=== PATIENT | female | born 1975 | race Caucasian/White ===

== ENCOUNTER 2023-02-04 14:19 | Emergency (ER) | payer MEDICAID, SELFPAY ==
[2023-02-04 14:20] VITALS: BP 102/71; PULSE 81; RESP 18; TEMP 36.2; O2SAT 95; BMI 40.0
[2023-02-04 14:28] VITALS: BP 102/71; PULSE 86; RESP 18; TEMP 36.2; O2SAT 96; O2SAT 97
--- NOTE | 2023-02-04 14:35 | RAD_ITS ---
STUDY: X-RAY - LEFT CALCANEUS REASON FOR EXAM: Female, 47 years old. Pain following a fall. History of recent surgery. TECHNIQUE: 3 view(s) of the calcaneus were obtained. COMPARISON: None. FINDINGS: Plantar spur. Findings suggestive of a hardware removal along the posterior aspect of the calcaneus. Soft tissue swelling and small amount of air within the soft tissues overlying the posterior aspect of the hindfoot most likely secondary to post surgery. Clinical correlation is recommended. RAD/Calcaneus min 2 Views IMPRESSION: Plantar spur. Soft tissue swelling with small amount of air as described most likely postsurgical in nature. Electronically Signed: Ronnell Mcclain MD at 15:19 EDT ,
--- NOTE | 2023-02-04 14:35 | RAD_ITS ---
STUDY: X-RAY - LEFT FOOT CLINICAL: Female, 47 years old. Pain following injury. TECHNIQUE: 3 view(s) of the foot. COMPARISON: None. FINDINGS: There is a plantar calcaneal spur. Findings suggestive of hardware removal along the posterior aspect of the calcaneus. Normal visualized subtalar, talonavicular, calcaneocuboid, tarsal and tarsometatarsal articulations. Normal metatarsi. Normal metatarsophalangeal joint of the great toe. Normal tibial and fibular sesamoid bones. Normal interphalangeal joint of the great toe. Normal phalanges of the great toe. Normal second through fifth metatarsophalangeal joints. Normal interphalangeal joints and phalanges of the lesser toes. Soft tissue swelling and small amount of air is seen in the region of the Achilles tendon. This most likely is postoperative in nature. RAD/Foot min 3 Views IMPRESSION: No fracture is seen. Postoperative soft tissue changes. Electronically Signed: Ronnell Mcclain MD at 15:21 EDT ,
--- NOTE | 2023-02-04 14:45 | RAD_ITS ---
STUDY: X-RAY - LEFT ANKLE REASON FOR EXAM: Female, 47 years old. Pain following injury. Recent surgery. TECHNIQUE: 3 view(s) of the ankle. COMPARISON: None. FINDINGS: Normal visualized distal tibia and fibula. Normal medial and lateral malleoli. Normal tibiotalar articulation and ankle mortise. Plantar spur. The visualized subtalar, talonavicular, calcaneocuboid and tarsal articulations are normal. Soft tissue swelling. Air pockets are seen in the soft tissues overlying the posterior aspect of the distal tibia and fibula and superior aspect of the calcaneus. This may be postoperative in nature. RAD/Ankle min 3 Views IMPRESSION: Soft tissue changes as described. No acute fracture is seen. Electronically Signed: Ronnell Mcclain MD at 15:18 EDT ,
--- NOTE | 2023-02-04 15:30 | EX.ED.GENINJ ---
HPI History of Present Illness Chief Complaint: Fall Informant: patient Narrative Narrative: Patient presents with right ankle area and heel pain. Patient had heel spur surgery in the back of her left heel a week ago tomorrow. This was done at [facility]. She was at [facility] in follow-up today to see her surgeon and everything was doing well. As she was going up about 2 steps at her home she tripped fell and felt or heard cracking when her left foot hit the ground. She has slight increase in pain. But the pain is better after meds by EMS. She states nothing else hurt. She did not hit her head. Her hips knees and arms do not hurt. Her back does not hurt. The only thing that hurts is her left heel area. PFSH PFS Medical History ADHD Anxiety Asthma Allergy/AdvReac Type Severity Reaction Status Date / Time codeine Allergy Hives Verified 02/04/23 14:28 Surgical History History of total hysterectomy Hx of appendectomy Hx of tonsillectomy Social History Smoking Status: Current every day smoker tobacco type: cigarettes and e-cigarettes ROS ROS ED Constitutional Constitutional ED: Denies chills or fever(s) Gastrointestinal Gastrointestinal: Denies nausea or vomiting Musculoskeletal Musculoskeletal: Reports arthralgias; Denies back pain, myalgias or neck pain Integumentary Reports other Details: Healing incision left heel ; Denies abscess, Abrasions or rash Neurologic Neurologic: Denies paresthesias or weakness Endocrine Endocrinology: Denies polydipsia or polyuria Hematologic/Lymphatic Hematologic/Lymphatic: Denies easy bleeding or easy bruising EXAM Physical Exam Narrative Exam Narrative: Patient awake alert laying in bed no acute distress HEENT shows no sign of trauma anywhere Neck shows no tenderness or pain with range of motion Lungs are clear bilaterally and saturations are normal at 96% on room air showing no hypoxia. Heart is regular. Abdomen is mildly obese but otherwise benign. Extremities show normal upper extremity and right lower. Left does have a boot on. This is gently removed. She has a sock over the incision. The incision has multiple sutures in place. It is still intact. It does not look infected. There is a little bit of serous drainage from the upper portion but it is not purulent. There is no visible deformity. There is no peripheral cyanosis. Capillary refill is normal. Neurologically her sensation is intact distally. Spine shows no tenderness anywhere from cervical thoracic or lumbar area. Const Vital Signs: 02/04/23 14:20 02/04/23 14:28 02/04/23 14:28 Temperature 97.1 F L 97.1 F L Temperature Source Temporal Pulse Rate 81 86 Respiratory Rate 18 18 Respiratory Effort Normal Non-Labored Respiratory Depth Normal Respiratory Pattern Normal Blood Pressure 102/71 102/71 Blood Pressure Mean 81 81 Pulse Ox 95 97 96 Oxygen Delivery Method Room Air Room Air Room Air MDM MDM MDM Narrative Medical decision making narrative: My independent interpretation of three-view x-rays of the left foot, 3 view x-rays of her left calcaneus, and three-view x-rays of the left ankle all show some air posteriorly consistent with surgery but there is no sign of acute fracture or dislocation. Patient had thought there might be hardware in the foot but we do not see any sign of this. Final reading by radiology is similar. I explained to the patient that the popping and cracking sounds that she heard may have been the plastic and metal boot orthosis that she was wearing. There is no indication of fractures. Her boot seems to be intact when I stress it. We will dress the wound and she will follow-up with her surgeon. Radiography Diagnostic Testing: Clinical Impression(s) from Imaging Studies Foot X-Ray 02/04/23 14:35 IMPRESSION: No fracture is seen. Postoperative soft tissue changes. Electronically Signed: Ronnell Mcclain MD at 15:21 EDT , Os Calcis X-ray 02/04/23 14:35 IMPRESSION: Plantar spur. Soft tissue swelling with small amount of air as described most likely postsurgical in nature. Electronically Signed: Ronnell Mcclain MD at 15:19 EDT , Ankle X-Ray 02/04/23 14:45 IMPRESSION: Soft tissue changes as described. No acute fracture is seen. Electronically Signed: Ronnell Mcclain MD at 15:18 EDT Reading Location ID and State: [facility] / [place] , Service support , Discharge Plan Triage Chief Complaint: Fall ED Provider: Woody Early Dx/Rx/DC Orders Clinical Impression: Fall on steps, Pain of left heel, Post-op pain Instructions: ED Post Op Wound Check, Pain Primary Care Provider: Pipe Stoddard Referrals: Pipe Stoddard MD [Primary Care Provider] - Activity Restrictions/Additional Instructions: Follow-up with your foot surgeon. Disposition Disposition: Home, Self Care
--- NOTE | 2023-02-04 15:37 | ED.RN ---
THIS RN CALLED PT DAUGHTER PER PT REQUEST TO LET HER KNOW PT IS TO BE DISCHARGED. CALL TOOK PLACE AT [phone].
[2023-02-04 15:38] VITALS: RESP 18
== END 2023-02-04 15:41 | disposition home or self-care (01) ==
PROVIDERS: Emergency Provider Emergency Medicine; PCP Family Medicine; Visit Provider Emergency Medicine
DX: M79.672 Pain in left foot (principal); G89.18 Other acute postprocedural pain; F17.210 Nicotine dependence, cigarettes, uncomplicated; F17.290 Nicotine dependence, other tobacco product, uncomplicated; M25.571 Pain in right ankle and joints of right foot; W10.9XXA Fall (on) (from) unspecified stairs and steps, initial encounter; Z98.890 Other specified postprocedural states
CPT/HCPCS: 73610; 73630; 73650; 99284

== ENCOUNTER 2024-05-27 14:53 | Emergency (ER) | payer OTHER, SELFPAY ==
[2024-05-27 14:54] VITALS: BP 179/78; PULSE 94; RESP 22; TEMP 36; O2SAT 97; BMI 35.6
--- NOTE | 2024-05-27 15:06 | EX.ED.VIS.EY ---
HPI History of Present Illness Chief Complaint: Eye Problem Informant: patient Onset/Context/Timing Location: Left Eye Onset: Today Context: - (Awoke at 3 AM with it. Unknown onset.) Timing: Continuous Current Severity: Mild Maximum Severity: Mild Associated Symptoms Associated Symptoms - Eyes: Pain History of injury: No Visual correction: Glasses (Reading glasses only.) Narrative Narrative: 49-year-old female history of diabetes. Hypertension. States she wears reading glasses only. No contacts. No prior eye surgery. She typically wakes up around 3 AM. Said she woke up this morning at 3 AM noticed some discomfort to her left eye. Normal vision in the right. Denies any history of trauma. No discharge. No history of foreign body. Said when she looks with her left eye there is an area in the left lateral field words blurry. The rest of the left eye vision she thinks is normal. The right eye vision is her baseline. Prior similar symptoms: No Recent Illness/Hospitalization: No PFSH PFSH Medical History Asthma ADHD Anxiety Allergy/AdvReac Type Severity Reaction Status Date / Time codeine Allergy Hives Verified 05/27/24 14:55 Surgical History Hx of tonsillectomy Hx of appendectomy History of total hysterectomy Social History Smoking Status: Current every day smoker tobacco type: cigarettes and e-cigarettes ROS ROS ED ROS Narrative Denies recent illness. Constitutional Constitutional ED: Denies fever(s) Eyes Eyes: Reports blurry vision and change in vision ENT ENT ED: Denies ear pain Cardiovascular Cardiovascular: Denies chest pain Respiratory/Chest Respiratory/Chest: Denies cough or dyspnea Gastrointestinal Gastrointestinal: Denies abdominal pain Genitourinary Genitourinary ED: Denies dysuria or hematuria Musculoskeletal Musculoskeletal: Denies arthralgias Integumentary Denies abscess Neurologic Neurologic: Denies headache(s), paresthesias or weakness Psychiatric Psychiatric: Denies anxiety or depression Endocrine Endocrinology: Denies polydipsia Hematologic/Lymphatic Hematologic/Lymphatic: Denies easy bleeding Allergic/Immunologic Allergic/Immunologic ED: Denies mouth swelling or tongue swelling EXAM Physical Exam Narrative Exam Narrative: 49-year-old female no acute distress. Vital signs stable afebrile. Initial blood pressure 179/78. She does not look septic toxic or in any distress. H EENT exam pupils round react light. Extra motions are intact. No swelling or discharge from her eyes. No orbital or periorbital cellulitis. No preauricular lymphadenopathy. No watering. No noted foreign body. Left upper and lower lids were everted. Were unremarkable. There is no discoloration or redness of the left eye. They appear equal and symmetrical. Lungs clear. Heart regular rhythm. No murmur. Abdomen soft. Moving all 4 extremities. Neurologic exam unremarkable. Awake alert. Answering questions following commands. Able to open close both eyes. No facial droop. Normal speech. NIH 0. Const Vital Signs: 05/27/24 14:54 Temperature 96.8 F L Temperature Source Temporal Pulse Rate 94 Respiratory Rate 22 H Blood Pressure 179/78 H Blood Pressure Mean 111 Pulse Ox 97 Oxygen Delivery Method Room Air Positive well nourished and well developed; Negative for cachectic, contractures or unkempt General Appearance ED: well developed and NAD; Negative for unkempt, cachectic or contractures Nutritional Appearance: Negative for cachectic HEENT atraumatic; Negative for trauma or tenderness Neck no lymphadenopathy, supple and no JVD General: Negative for tenderness Resp normal respiratory effort, no retractions, no use of accessory muscles and clear to auscultation bilaterally Cardio regular rate, regular rhythm, S1 normal heart sound, S2 normal heart sound and no murmurs GI non-tender, non-distended and no masses Inspection: Negative for other Auscultation: normoactive bowel sounds Palpation: soft Back/Spine no CVA tenderness General Back: Negative for CVA tenderness Extremity normal to inspection General Extremety ED: Negative for edema or other findings General Extremity: Negative for edema or other findings Neuro oriented x3, CN's II-XII intact bilaterally and moves all extremities Sensorium / Orientation: alert, oriented to person, oriented to place and oriented to time Motor Exam: strength 5/5 throughout; Negative for general weakness or strength abnormal Psych Appearance: Negative for unkempt Attitude: No agitated Mood & Affect: Negative for depressed, anxious or tearful Skin no wounds Lesions: no lesions Rashes: no rashes Trauma: Negative for abrasion or laceration MDM MDM MDM Narrative Medical decision making narrative: 49-year-old diabetic female awoke this morning at 3 AM approximately 12 hours ago with decreased vision left eye left lateral field. No history of trauma. Eye exams unremarkable.Otherwise she has a normal neurologic exam. Visual acuity per nurse was 20/30 right eye 20/30 left eye in 2024 bilateral. This is without glasses or contacts. Patient does not have any floaters or flashing of light. She does not have a curtain type of appearance like a detached retina. Slit-lamp examination of her left eye with fluorescein stain showed no foreign body. No corneal abrasion. I did a funduscopic exam it was limited because she was not dilated I do not see any obvious abnormality but again very limited exam. I spoke to the desulphuring operator on-call Dr. Armando Lopez. Discussed the patient's case and exam and visual acuity. He will follow her up in his office Wednesday. She will be given his number for referral. He said if she gets any worse just to have her call him and he would meet her in the office today or tomorrow to do an eye exam. Otherwise she can see her on Wednesday. History & Record Review Discussion w/independent historian: Patient Additional record(s) reviewed:: Prior inpatient record, Prior outpatient record, Prior ED visit and Prior labs Discharge Plan Triage Chief Complaint: Eye Problem ED Provider: Franky Arreaga Dx/Rx/DC Orders Clinical Impression: Alteration in vision, History of diabetes mellitus, History of hypertension Instructions: Understanding Vision Problems Primary Care Provider: Pipe Stoddard Referrals: Pipe Stoddard MD [Primary Care Provider] - Armando Lopez MD [Med Staff - Active Staff] - As soon as possible Activity Restrictions/Additional Instructions: I spoke Dr. Armando Lopez of [facility]. He is the eye doctor on-call. He said call their office first thing Wednesday at 8 AM he will get you in for an appointment that day to be reevaluated. He told me if your vision gets worse you start getting floaters or flashing or the vision gets worse to call their office this weekend and he will come in to see you this weekend. Print Language: Tamazight Disposition Disposition: Home, Self Care
[2024-05-27] MEDS: Fluorescein 1 MG STRIP 1 STRIP LEFT EYE (15:20)
[2024-05-27 15:54] VITALS: BP 155/74; PULSE 85; RESP 17; TEMP 36.6; O2SAT 99
== END 2024-05-27 15:54 | disposition home or self-care (01) ==
PROVIDERS: Emergency Provider Emergency Medicine; PCP Family Medicine; Visit Provider Emergency Medicine
DX: H54.7 Unspecified visual loss (principal); E11.9 Type 2 diabetes mellitus without complications; I10 Essential (primary) hypertension; F17.210 Nicotine dependence, cigarettes, uncomplicated; F17.290 Nicotine dependence, other tobacco product, uncomplicated; Z88.5 Allergy status to narcotic agent
CPT/HCPCS: 99283

== ENCOUNTER → 2024-05-29 | Outpatient (CLI) | payer OTHER, SELFPAY ==
[2024-05-29 12:38] LABS: Absolute Lymphocyte Count 3.08 X10^3/uL (0.83-4.51); Absolute Neutrophil Count 8.2 X10^3/uL (2.0-7.7); Basophil# 0.02 X10^3/uL; Basophil% 0.2 % (0-1); Eosinophil# 0.32 X10^3/uL; Eosinophils% 2.6 % (0-5); Hematocrit 45.3 % (37-47); Lymphocyte # 3.08 X10^3/ul (0.83-4.51); Lymphocyte % 25.3 % (19-41); Mean Corp Hgb Conc 33.1 g/dL (32-36); Mean Corpuscular Hgb 28.2 pg (27.0-32.0); Mean Corpuscular Volume 85.2 fL (81-99); Mean Platelet Vol. 9.7 fl (6.2-12.0); Monocyte# 0.56 X10^3/uL; Monocyte% 4.6 % (0-10); NRBC Flagged by Analyzer 0 % (0-5); Neutrophil # 8.17 X10^3/uL (2.7-7.7); Platelet Count 300 K/mm3 (150-450); RBC Distribution Width SD 43.6 fl (35.1-43.9); Red Blood Count 5.32 M/mm3 (4.2-5.4); White Blood Count 12.2 K/mm3 (4.4-11.0)
[2024-05-29 12:43] LABS: Erythrocyte Sedimentation Rate 15 mm/hr (0-30)
[2024-05-30 15:09] LABS: Angiotensin Convert Enzyme 38 U/L (14-82)
== END | disposition home or self-care (01) ==
PROVIDERS: PCP Family Medicine; Referring Provider Ophthalmology; Visit Provider Ophthalmology
DX: H47.332 Pseudopapilledema of optic disc, left eye (principal)
CPT/HCPCS: 36415; 82164; 85025; 85652; 86140

== ENCOUNTER → 2024-06-20 | Outpatient (CLI) | payer OTHER, SELFPAY ==
--- NOTE | 2024-06-20 06:40 | MRI_ITS ---
STUDY: MRI ORBITS WITH AND WITHOUT CONTRAST REASON FOR EXAM: Female, 49 years old. PSEUDOPAPILLEDEMA OF LEFT EYE TECHNIQUE: Standardized fat and water weighted pulse sequences were obtained in all 3 orthogonal planes, pre-and post contrast administration. IV 17ml Clariscan was administered for the contrast portion of the examination. COMPARISON: None. FINDINGS: Normal bilateral globes. Normal bilateral optic nerve sheath complexes and optic nerves. Normal bilateral intraconal and extraconal spaces. Normal bilateral extraocular muscles. Normal optic chiasm and post-chiasmatic tracts. Normal sella turcica, pituitary gland, infundibular stalk, and hypothalamus. Normal bilateral cavernous sinuses. Normal tectal plate and pineal gland. Normal flow voids within the major intracranial circulation suggesting patency by spin echo criteria. Normal size of the ventricles and extra-axial spaces for the patient''s age. Normal white matter tracts of the supratentorial brain. Normal bilateral basal ganglia. Normal thalami. There is no extra-axial fluid accumulation. Normal midbrain, you and medulla. Normal cerebellum. Normal basal cisterns. Following intravenous contrast administration, there are no abnormally enhancing lesions intra-axially and extra-axially. There are no abnormal enhancing lesions in the orbital fossa and contents. MRI/Brain W/WO Contrast IMPRESSION: Normal enhanced and unenhanced MRI of the brain and orbits. Electronically Signed: Vinh Easton MD at 12:35 EDT ,
[2024-06-20 07:14] LABS: CREATININE FINGERSTICK < 1.0 mg/dL (0.55-1.02); EGFR FINGERSTICK > 60.0000 mL/min (>60)
== END | disposition home or self-care (01) ==
PROVIDERS: PCP Family Medicine; Referring Provider Ophthalmology; Visit Provider Ophthalmology
DX: H47.332 Pseudopapilledema of optic disc, left eye (principal)
CPT/HCPCS: 70553; A9575

== ENCOUNTER → 2024-07-26 | Outpatient (CLI) | payer OTHER, SELFPAY ==
--- NOTE | 2024-07-26 13:15 | RAD_ITS ---
STUDY: X-RAY - RIGHT KNEE REASON FOR EXAM: Female, 49 years old. Knee injury TECHNIQUE: 3 view(s) of the knee. COMPARISON: None. FINDINGS: Normal visualized distal femur. Normal visualized proximal tibia and fibula. Normal proximal tibiofibular articulation. Normal medial femorotibial compartment. Normal lateral femorotibial compartment. Normal patellofemoral articulation. Minimal joint effusion. RAD/Knee 3 Views IMPRESSION: Minimal joint effusion. Electronically Signed: Ronnell Mcclain MD at 13:33 EST ,
== END | disposition home or self-care (01) ==
LOC: MTRAD 13:14
PROVIDERS: PCP Family Medicine; Referring Provider Physician Assistant; Visit Provider Physician Assistant
DX: S89.91XA Unspecified injury of right lower leg, initial encounter (principal)
CPT/HCPCS: 73562